=== PATIENT | female | born 1935 | race Caucasian/White ===

== ENCOUNTER 2018-02-12 20:33 | Emergency (ER) | payer MEDICARE ==
--- NOTE | 2018-02-12 21:28 | EDM.PDOC ---
ED HPI GENERAL MEDICAL PROBLEM - General Chief Complaint: Head Injury Stated Complaint: FELL HURT HEAD Time Seen by Provider: 02/12/18 21:19 Source of Information: Reports: Patient, Family, RN Notes Reviewed History Limitations: Reports: No Limitations - History of Present Illness INITIAL COMMENTS - FREE TEXT/NARRATIVE: 82-year-old presents to the emergency department today female after a fall where she landed on the back of her head there was no loss of consciousness she takes no blood thinners has a slight headache did have nausea but that now has resolved after eating Head Pain Score (Numeric/FACES): 4 - Related Data Allergies Allergy/AdvReac Type Severity Reaction Status Date / Time No Known Allergies Allergy Verified 02/12/18 21:04 Home Meds: Home Meds Aspirin 81 mg PO DAILY 02/12/18 [History] Cholecalciferol (Vitamin D3) [Vitamin D3] 4,000 unit PO DAILY 02/12/18 [History] Pravastatin [Pravachol] 40 mg PO DAILY 02/12/18 [History] Past Medical History HEENT History: Reports: Impaired Vision Cardiovascular History: Reports: High Cholesterol Musculoskeletal History: Reports: Arthritis - Past Surgical History Other Female Surgeries/Procedures: INCONTINENCE Oncologic Surgical History: Reports: Mastectomy Social & Family History - Tobacco Use Smoking Status *Q: Unknown Ever Smoked ED ROS GENERAL - Review of Systems Review Of Systems: See Below Constitutional: Reports: No Symptoms HEENT: Reports: No Symptoms Respiratory: Reports: No Symptoms Cardiovascular: Reports: No Symptoms GI/Abdominal: Reports: No Symptoms : Reports: No Symptoms Musculoskeletal: Reports: No Symptoms Skin: Reports: No Symptoms Neurological: Reports: Headache ED EXAM, HEAD INJURY - Physical Exam Exam: See Below Text/Narrative:: Cranial nerves II through XII grossly intact, power is 5 out 5 in upper and lower extremities, no dysdiadochokinesis Romberg is negative, has adequate gait can do heel to toe, can toe walk and heel walk no cerebellar dysfunction no focal neurologic deficit Exam Limited By: No Limitations General Appearance: Alert, WD/WN, No Apparent Distress Head: Normocephalic, Scalp Hematoma, Scalp Tenderness Eyes: Bilateral Eye: EOMI, Normal Inspection, PERRL Ears: Normal External Exam, Normal Canal, Hearing Grossly Normal, Normal TMs Nose: Normal Inspection, Normal Mucousa, No Blood Throat/Mouth: Normal Inspection, Normal Lips, Normal Teeth, Normal Gums, Normal Oropharynx, Normal Voice, No Airway Compromise Neck: Non-Tender, Full Range of Motion, Normal Alignment, Normal Inspection Respiratory: No Respiratory Distress, Lungs Clear Cardiovascular: Regular Rate, Rhythm, No Murmur Neurologic: absence management consultant II-XII nml As Tested, No Motor/Sensory Deficits, Alert, Normal Mood/Affect, Oriented x 3. No: Abnormal Cerebellar Tests, Abnormal Gait, Motor Weakness, Sensory Deficit, Depressed Affect, Disoriented x 3 Course - Vital Signs Last Recorded V/S: Last Vital Signs Temp 97.5 F 02/12/18 21:02 Pulse 85 02/12/18 21:02 Resp 15 02/12/18 21:02 BP 183/102 H 02/12/18 21:02 Pulse Ox 97 02/12/18 21:02 - Orders/Labs/Meds Orders: Active Orders 24 hr Category Date Time Status Head wo Cont [CT] Stat Exams 02/12/18 21:25 Taken Departure - Departure Time of Disposition: 23:31 Disposition: Home, Self-Care 01 Condition: Good Clinical Impression: Head injury Qualifiers: Encounter type: initial encounter Qualified Code(s): S09.90XA - Unspecified injury of head, initial encounter - Discharge Information Referrals: Gurdeep Perez MD [Primary Care Provider] - Forms: ED Department Discharge Additional Instructions: Please followup with your primary care provider in 3-5 days if not better, please call return to the emergency department with worsening of symptoms. - My Orders Last 24 Hours: My Active Orders 02/12/18 21:25 Head wo Cont [CT] Stat - Assessment/Plan Last 24 Hours: My Active Orders 02/12/18 21:25 Head wo Cont [CT] Stat Plan: Assessment Acuity = acute Site and laterality = head injury Etiology = secondary to fall Manifestations = none Location of injury = Home Lab values = CT scan of the head shows no acute process Plan Discharge home follow-up primary care as needed, concussion handout head injury handout provided This note was dictated using [employer] voice recognition software please call with any questions on syntax or alexander.
== END 2018-02-12 23:47 | disposition home or self-care (01) ==
LOC: JP.ED 20:33
DX: S09.90XA Unspecified injury of head, initial encounter (principal); S00.03XA Contusion of scalp, initial encounter; Z79.82 Long term (current) use of aspirin; Z79.899 Other long term (current) drug therapy; E78.00 Pure hypercholesterolemia, unspecified; W19.XXXA Unspecified fall, initial encounter; Y92.009 Unspecified place in unspecified non-institutional (private) residence as the place of occurrence of the external cause
CPT/HCPCS: 70450; 99283; 99284-25

== ENCOUNTER 2024-01-10 10:13 | Emergency (ER) | payer MEDICARE ==
[2024-01-10 12:29] LABS: BASOPHILS ABSOLUTE AUTO 0.03 K/uL (0.00-0.10); BASOPHILS PERCENT AUTO 0.4 % (0.1-1.3); EOSINOPHILS ABSOLUTE AUTO 0.12 K/uL (0.00-0.40); EOSINOPHILS PERCENT AUTO 1.6 % (0.0-5.4); HEMATOCRIT 40.3 % (34.3-46.0); HEMOGLOBIN 13.6 g/dL (11.2-15.5); IMMATURE GRAN PERCENT AUTO 0.3 % (0.0-0.7); LYMPHOCYTES ABSOLUTE AUTO 2.18 K/uL (0.8-3.3); MEAN CORPUSCULAR HEMOGLOBIN 31.6 pg (31.6-35.5); MEAN CORPUSCULAR HGB CONC 33.7 g/dL (31.6-35.5); MEAN CORPUSCULAR VOLUME 93.7 fL (81.4-99.0); MONOCYTES PERCENT AUTO 10.6 % (3.3-12.6); NEUTROPHILS ABSOLUTE AUTO 4.37 K/uL (1.0-7.6); NEUTROPHILS PERCENT AUTO 58.1 % (40.0-78.1); PLATELET COUNT,PLT 251 K/uL (130-375); WHITE BLOOD CELL COUNT,WBC 7.5 K/uL (3.2-11.0)
[2024-01-10] MEDS: Sodium Chloride 0.9% 1,000 ML IV SCH (12:30)
[2024-01-10 12:31] LABS: IMMATURE GRAN ABSOLUTE AUTO 0.02 K/uL (0.00-0.23)
[2024-01-10] MEDS: Ketorolac 30 MG/ML SDV IVPUSH ONE (12:35)
[2024-01-10 12:45] LABS: ANION GAP 10.7 mmol/L (5.0-14.0); CALCIUM 9.9 mg/dL (8.5-10.1); CREATININE 1.1 mg/dL (0.6-1.0); EST CRCL DRUG DOSING (CG) 29.04 mL/min; POTASSIUM,K 4.6 mmol/L (3.6-5.2)
[2024-01-10] MEDS: Iopamidol 612 MG/ML 100 ML Bottle IV PRN (13:00)
[2024-01-10] MEDS: Sodium Chloride 0.9% 80 ML IV SCH (13:00)
[2024-01-10] MEDS: Sodium Chloride 0.9% 10 ML Syringe FLUSH ONE (13:00)
[2024-01-10] MEDS: Sodium Chloride 0.9% 10 ML Syringe FLUSH PRN (13:16)
== END 2024-01-10 14:18 | disposition home or self-care (01) ==
LOC: JP.ED 10:13
DX: R07.89 Other chest pain (principal); I10 Essential (primary) hypertension; E78.00 Pure hypercholesterolemia, unspecified; Z79.82 Long term (current) use of aspirin; Z79.899 Other long term (current) drug therapy
CPT/HCPCS: 36415; 71260; 71260-26; 80048; 85025; 96374; 99283; 99285-25; J1885; J3490; J7030; Q9967